=== PATIENT | female | born 1960 | race Caucasian/White ===

== ENCOUNTER 2019-02-02 08:46 | Day surgery (SDC) | payer OTHER ==
[2019-02-02] MEDS ORDERED: LIDOCAINE 2% (SDV) 5 ML INJ (09:32)
[2019-02-02] MEDS ORDERED: PROPOFOL 60 ML (09:32)
== END 2019-02-02 14:09 | disposition home or self-care (01) ==
LOC: GIL 08:46
DX: Z12.11 Encounter for screening for malignant neoplasm of colon (principal); K64.4 Residual hemorrhoidal skin tags; K29.50 Unspecified chronic gastritis without bleeding
CPT/HCPCS: 43239; 88305; 88312